=== PATIENT | male | born 1990 | race Caucasian/White ===

== ENCOUNTER 2017-11-08 23:32 | Emergency (ER) | payer OTHER, BC ==
[~2017-11-08] VITALS: Ht 175.3 cm; Wt 66.8 kg
[2017-11-08 23:32] VITALS: BP 116/72
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
== END 2017-11-09 00:15 | disposition home or self-care (01) ==
LOC: ER 23:32
DX: Z77.21 Contact with and (suspected) exposure to potentially hazardous body fluids (principal)
CPT/HCPCS: 99281